=== PATIENT | male | born 1950 | race Caucasian/White ===

== ENCOUNTER 2018-09-13 19:58 | Inpatient (IN) | payer MEDICARE, MEDICAID ==
[~2018-09-13] VITALS: Ht 172.7 cm; Wt 63.5 kg
[2018-09-13 20:04] VITALS: BP 140/81
--- NOTE | 2018-09-13 20:12 | NUR ---
STATUS PATIENT REFUSING TO COOPERATE, HOSTILE, AND DISRUPTIVE IN WAITING AREA WHILE THIS NURSE ATTEMPTS TO BRING PT TO BACK FOR TRIAGE. HOSPITAL SECURITY DALLIN MCNALLY, MADE AWARE AND ATTEMPTS TO REASON WITH PATIENT UNSUCCESSFUL. AT THIS TIME, DALLIN NOTIFIED [place] [employer] DISPATCH AND REQUESTED OFFICER SUPPORT. AWAIT ARRIVAL. PT REMAINS IN ER WAITING AREA AT THIS TIME.
--- NOTE | 2018-09-13 20:18 | NUR ---
[place] [employer] LIZ HOLDEN AND OFFICER YOVANY ARRIVE TO [place] ER WAITING AREA. PT AGREES TO CARE AFTER REMEDIATION WITH OFFICER. PATIENT ESCORTED TO ER ROOM 8 ACCOMPANIED BY POLYSOMNOGRAPHY TECHNOLOGIST X2, HOSPITAL SECURITY, AND THIS NURSE. PT COOPERATIVE AND MORE PLEASANT.
--- NOTE | 2018-09-13 20:22 | NUR ---
HOME MEDICATIONS PT STATES HE DOES NOT TAKE ANY MEDICATIONS. CALL TO [facility]. PER ABDIEL, HE HAS RECEIVED A FAX FROM NURSING FACILITY THAT INCLUDED HOME MEDICATIONS.
--- NOTE | 2018-09-13 20:33 | ER.PDOC ---
General Chief Complaint: Requesting Medical Care Stated Complaint: MEDICAL CLEARANCE Time seen by MD: 20:30 Source: senior living records Exam Limitations: clinical condition History of Present Illness Initial Comments For medical clearance to go to [facility] for dementia with behavioral disturbance Timing/Duration: this afternoon Severity: moderate Associated Symptoms: Agitated Allergies: Coded Allergies: No Known Allergies (Unverified , 09/13/18) Home Meds Reported Medications Naproxen (NAPROSYN) 500 Mg Tablet, 1 TAB PO BID, #60 TAB 1 Refill 09/13/18 Omeprazole (OMEPRAZOLE) 20 Mg Capsule.dr, 1 CAP PO DAILY for GERD, #30 CAP 5 Refills 09/13/18 Tramadol Hcl (TRAMADOL HCL) 50 Mg Tablet, 50 MG PO Q4 PRN for PAIN, TABLET 09/13/18 Mirtazapine (REMERON) 15 Mg Tablet, 1 TAB PO HS, #30 TAB 1 Refill 09/13/18 Memantine Hcl (NAMENDA) 10 Mg Tablet, 1 TAB PO BID, #180 TAB 1 Refill 09/13/18 Buspirone Hcl (BUSPIRONE HCL) 5 Mg Tablet, 1 TAB PO TID for Anxiety, #60 TAB 1 Refill 09/13/18 Donepezil Hcl (ARICEPT) 10 Mg Tablet, 1 TAB PO HS, #30 TAB 5 Refills 09/13/18 Past Medical History Medical History: other (dementia) Review of Systems Constitutional: no symptoms reported EENTM: no symptoms reported Respiratory: no symptoms reported Cardiovascular: no symptoms reported Gastrointestinal: no symptoms reported Psychiatric/Neurological: see HPI All Other Systems: Reviewed and Negative Physical Exam General Appearance: No acute distress, Alert Neck: Non-Tender, Full Range of Motion, Supple, Normal Inspection Respiratory: chest non-tender, lungs clear, normal breath sounds, no respiratory distress, no accessory muscle use Cardiovascular: Normal Peripheral Pulses, Regular Rate, Rhythm, No Edema, No Gallop, No JVD, No Murmur Gastrointestinal: Normal Bowel Sounds, No Organomegaly, No Pulsatile Mass, Non Tender, Soft Extremities: Non-Tender, Normal Range of Motion, No Evidence of Trauma, No Edema Neurological/Psychiatric: Alert, Normal Mood/Affect, Calm, chemical pumper II-XII NML as Tested, Oriented x 3 Appearance/Memory/Insight: Appropriate Appearance, Appropriate Insight, Neat, No Memory Impairment Thoughts/Hallucinations: Normal Thought Pattern Skin: Normal Color Results/Orders Results/Orders Laboratory Tests Test 09/13/18 20:38 09/13/18 20:40 Urine Collection Type CCMS Urine Color YELLOW (YELLOW) Urine Appearance CLEAR (CLEAR) Urine Bilirubin NEGATIVE MG/DL (NEGATIVE) Urine Ketones NEGATIVE (NEGATIVE) Urine Specific [place] 1.015 (1.005-1.035) Urine pH 5 (5.0-6.0) Urine Protein NEGATIVE (NEGATIVE) Urine Urobilinogen NORMAL (NEGATIVE) Urine Nitrate NEGATIVE (NEGATAIVE) Urine Leukocyte Esterase NEGATIVE (NEGATIVE) Urine Blood NEGATIVE (NEGATIVE) Urine Glucose NORMAL (NEGATIVE) Urine Opiates, Qualitative NEGATIVE ng/mL (CUT-OFF:300) Urine Methadone, Qualitative NEGATIVE ng/mL (CUT-OFF:300) Urine Amphetamine Qualitative NEGATIVE ng/mL (CUTOFF:1000) Urine Barbiturates, Qualitative NEGATIVE ng/mL (CUT-OFF:200) Urine Phencyclidine Screen NEGATIVE ng/mL (CUT-OFF:25) Urine MDMA (Ecstasy), Qualitative NEGATIVE ng/mL (CUT-OFF:300) Urine Benzodiazepines Screen NEGATIVE ng/mL (CUT-OFF:200) Urine Cocaine Qualitative NEGATIVE ng/mL (CUT-OFF:300) Ur Tetrahydrocannabinol (THC) Scrn NEGATIVE ng/mL (CUT-OFF:50) White Blood Count 7.3 10^3/uL (4.5-11.0) Red Blood Count 4.99 10^6/uL (4.50-5.90) Hemoglobin 15.0 g/dL (13.9-16.3) Hematocrit 46.8 % (37.0-53.0) Mean Corpuscular Volume 93.8 fL (78-100) Mean Corpuscular Hemoglobin 30.1 pg (26-34) Mean Corpuscular Hemoglobin Concent 32.1 g/dL (33-37) Red Cell Distribution Width 13.3 % (11.5-14.5) Platelet Count 230 10^3/uL (150-400) Mean Platelet Volume 9.0 fL (7.8-11.0) Neutrophils (%) (Auto) 50.0 % (41.0-85.0) Lymphocytes (%) (Auto) 36.1 % (24.0-44.0) Monocytes (%) (Auto) 7.5 % (5.0-12.0) Neutrophils # (Auto) 3.6 10^3/uL (1.8-7.7) Lymphocytes # (Auto) 2.6 10^3/uL (1.0-4.8) Monocytes # (Auto) 0.6 10^3/uL (0.3-0.8) Absolute Immature Granulocyte (auto 0.08 10^3 u/L (0-2) Eosinophils % 4.5 % (0.0-5.0) Basophils % 0.8 % (0.0-0.2) Basophils # 0.1 10^3/uL (0.0-0.1) Eosinophil Count 0.3 10^3/uL (0.0-0.2) Prothrombin Time 10.4 SEC (9.8-11.9) Prothrombin Time INR (Non-Therap) 1.0 Activated Partial Thromboplast Time 26.6 SEC (24.67-30.72) Sodium Level 143 mmol/L (132-145) Potassium Level 4.0 mmol/L (3.6-5.2) Chloride Level 106.0 mmol/L (96-109) Carbon Dioxide Level 29.4 mmol/L (20.0-32) Anion Gap 11.6 Blood Urea Nitrogen 19 mg/dL (7-18) Creatinine 1.25 mg/dL (0.59-1.40) Estimated GFR () 69.1 (>/=60) BUN/Creatinine Ratio 15.0 Glucose Level 125 mg/dL (70-110) Calcium Level 9.4 mg/dL (8.4-10.5) Total Bilirubin 0.5 mg/dL (0.2-1.0) Aspartate Amino Transf (AST/SGOT) 14 U/L (0-35) Alanine Aminotransferase (ALT/SGPT) 23 U/L (12-78) Alkaline Phosphatase 75 U/L (50-136) Total Creatine Kinase 95 U/L (39-308) Troponin I < 0.02 ng/mL (0.00-0.05) Pro-B-Type Natriuretic Peptide 95 pg/mL (0-125) Total Protein 7.6 g/dL (6.4-8.2) Albumin 4.2 g/dL (3.4-5.0) Globulin 3.4 Vitamin B12 Level 304 pg/mL (193-986) Thyroid Stimulating Hormone (TSH) 4.149 mIU/mL (0.358-3.740) Percent Immature Gran (Cell Imm) 1.10 % (0.00-0.50) EKG/XRAY/CT/US EKG: NSR XRAY: chest (No acitive disease) Departure Time of Disposition: 22:11 Disposition: 09 ADMITTED INPATIENT Impression: Primary Impression: Delusional disorder Additional Impression: Dementia Qualified Codes: F02.81 - Dementia in other diseases classified elsewhere with behavioral disturbance Condition: Stable Referrals: PCP,UNKNOWN (PCP) PRIMARY CARE PROVIDER Comments Admitted to Dr. Roldan. Spoke to Dr. Laird who will consult. Duration or Time Spent with Pa: 60 mins ELOISE RENTERIA MD Sep 13, 2018 20:33
--- NOTE | 2018-09-13 20:35 | NUR ---
URINE URINE OBTAINED VIA VOID AND SENT TO LAB-PATIENT REMAINS COOPERATIVE. PT POSITIONED SELF IN BED AND WARM BLANKETS.
[2018-09-13 20:42] VITALS: BP 106/73
[2018-09-13 20:45] LABS: BASOPHIL # 0.1 10^3/uL (0.0-0.1); BASOPHIL % 0.8 % (0.0-0.2); EOSINOPHIL # 0.3 10^3/uL (0.0-0.2); EOSINOPHIL % 4.5 % (0.0-5.0); LYMPHOCYTES # 2.6 10^3/uL (1.0-4.8); LYMPHOCYTES % 36.1 % (24.0-44.0); MEAN CELL HGB 30.1 pg (26-34); MEAN CELL HGB CONCENTRATION 32.1 g/dL (33-37); MEAN CORP VOLUME 93.8 fL (78-100); MONOCYTES # 0.6 10^3/uL (0.3-0.8); MONOCYTES % 7.5 % (5.0-12.0); NEUTROPHIL # 3.6 10^3/uL (1.8-7.7); RED CELL DISTRIBUTION WIDTH 13.3 % (11.5-14.5); WHITE BLOOD CELL 7.3 10^3/uL (4.5-11.0)
[2018-09-13 20:48] LABS: BILIRUBIN,URINE NEGATIVE (NEGATIVE); UROBILINOGEN,URINE NORMAL (NEGATIVE)
[2018-09-13 20:49] LABS: APPEARANCE,URINE CLEAR (CLEAR); UA COLOR YELLOW (YELLOW)
--- NOTE | 2018-09-13 20:58 | PCM.EKG ---
[facility] Test Date: 2018-09-13 Test Time: 20:57:39 Pat Name: FREDDY RAMIREZ Department: Room: 214 Gender: M Credit Professional: LATISHA : 1950 Requested By: ELOISE RENTERIA Order Number: [id number] Reading MD: Eloise RENTERIA Measurements Intervals [place] Rate: 67 P: 85 LA: 160 QRS: 81 QRSD: 130 T: 78 QT: 416 QTc: 439 Interpretive Statements Normal sinus rhythm Right bundle branch block Abnormal ECG No previous ECG available for comparison Electronically Signed On 09-14-2018 6:49:50 YIELD ANALYST by Eloise RENTERIA Please click the below link to view image of tracing.
--- NOTE | 2018-09-13 20:58 | DIREP ---
PROCEDURE:CHEST 2 VIEWS COMPARISON:None. INDICATIONS:Medical clearnace FINDINGS: LUNGS/PLEURA:There is pulmonary hyperinflation consistent with underlying COPD. No focal consolidation. No effusions. VASCULATURE:Normal. Unremarkable pulmonary vasculature. CARDIAC:Normal. No cardiac silhouette abnormality or cardiomegaly. MEDIASTINUM:Atherosclerotic aorta with no visible aneurysm. BONES:Mild degenerative disc disease and spondylosis without visible acute abnormalities. OTHER:Healed right lateral rib fractures. CONCLUSION:COPD. No acute cardiopulmonary disease. Dictated by: Cole Smith M.D. on 09/13/2018 at 08:55 PM
--- NOTE | 2018-09-13 21:20 | NUR ---
STATUS RESTING IN BED, EYES CLOSED, NO SIGNS OF DISTRESS. RESPIRATIONS EVEN AND NONLABORED.
[2018-09-13 21:29] LABS: ALANINE AMINOTRANSFERASE(ML) 23 U/L (12-78); ALKALINE PHOSPHATASE 75 U/L (50-136); ASPARTATE AMINO TRANSFERASE 14 U/L (0-35); CALCIUM 9.4 mg/dL (8.4-10.5); CARBON DIOXIDE 29.4 mmol/L (20.0-32); GLUCOSE 125 mg/dL (70-110)
[2018-09-13 21:40] VITALS: BP 108/61
[2018-09-13] MEDS ORDERED: MIRT15TA PO (21:58)
[2018-09-13] MEDS ORDERED: DONE10TA57 PO (21:58)
[2018-09-13] MEDS ORDERED: BUSP5TAB2 PO (21:58)
[2018-09-13] MEDS ORDERED: MEMA10TA PO (21:58)
[2018-09-13] MEDS ORDERED: TRAM50TA PO (21:58)
[2018-09-13] MEDS ORDERED: NAPR-809 PO (21:58)
[2018-09-13] MEDS ORDERED: OMEP20CA12 PO (21:58)
--- NOTE | 2018-09-13 22:04 | NUR ---
STATUS PATIENT RESTING IN BED WITH EYES CLOSED, RESPIRATIONS EVEN AND NONLABORED. NO SIGNS OF DISTRESS. VITALS STABLE.
--- NOTE | 2018-09-13 22:10 | NUR ---
DR GUTIERREZ ON PHONE WITH EDP REGARDING ADMISSION TO [facility] UN[facility]; AWAIT FURTHER ORDERS
--- NOTE | 2018-09-13 22:14 | PRM.ACF1 ---
Date and Time Date and Time Time: 22:13 Admission Criteria Forms PSYCHIATRIC DISORDERS Clinical Indications for Inpatient Care ([place]/check the applicable condition/criteria) Ongoing inpatient care may be needed for 1 or more of the following(1)(2)(3)(4)( 6)(7)(8): [x ]I. Danger to self or others not manageable at lower level of care. [ ]II. Grave disability (eg, inability to perform self care necessary at lower level of care) [ ]III. Agitation or inappropriate behavior interfering with care for primary condition (eg, attempting to discontinue lines or drains prematurely, unable to cooperate with respiratory care) [ ]IV. Severe disability or disorder indicated by ALL of the following: [ ]a) Severe behavioral health disorder-related symptoms or condition indicated by 1 or more of the following: [ ]i) Severe problem with cognition, memory, judgment, or impulse control [ ]ii) Severe clinical manifestations (eg, hallucinations, delusions, other acute psychotic symptoms, genesis, extreme agitation or anxiety) [ ]b) Patient management at lower level of care is not available or is not feasible until acute intervention or modification is initiated. Extended stay beyond goal length of stay for the primary condition may be needed until ALLof the following are present(1)(2)(3)(4)(722)(23): [ ]a) Danger to self or others is absent or manageable at lower level of care [ ]b) Behavior crisis management, including physical or chemical restraints, is required and is not available at a lower level of care. [ ]c) Behavioral symptoms (e.g., agitation, somnolence, inappropriate behavior) are present, and are not manageable at a lower level of care. [ ]d) Patient cannot understand follow-up treatment and crisis plan. [ ]e) Provider and supports are sufficiently available at lower level of care. [ ]f) Patient can participate (e.g., verify absence of plan for harm) and is in needed of monitoring. The original [facility] content created by [facility] has been revised. The portions of the content which have been revised are identified through the use of italic text or in bold, and [facility] has neither reviewed nor approved the modified material. All other unmodified content is copyright [employer]. Please see references footnoted in the original [facility] edition 2017 ELOISE RENTERIA MD Sep 13, 2018 22:14
[2018-09-13 22:25] VITALS: BP 109/69
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
[2018-09-13 23:00] VITALS: BP 137/73
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
[2018-09-14] MEDS ORDERED: BUSP5TAB2 PO (00:16)
[2018-09-14] MEDS ORDERED: ATIVAN PO PRN (00:30)
[2018-09-14] MEDS ORDERED: HALDOL PO PRN (00:30)
[2018-09-14] MEDS ORDERED: ATIVAN IM PRN (00:30)
[2018-09-14] MEDS ORDERED: HALDOL IM PRN (00:30)
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
[2018-09-14 08:20] VITALS: BP 117/70
[2018-09-14] MEDS: BUSPAR PO SCH ×2 (09:07→14:52)
[2018-09-14] MEDS: NAMENDA PO SCH ×2 (09:07→20:41)
[2018-09-14] MEDS: PROTONIX PO SCH (09:07)
[2018-09-14] MEDS: NAPROXEN PO SCH ×2 (09:07→20:41)
--- NOTE | 2018-09-14 11:45 | NUR ---
SW ASSESSMENTS: PT REMAINS CONFUSED AND DISORIENTED AT THIS TIME. SW WILL REATTEMPT ASSESSMENTS WHEN PT IS MORE ALERT AND ORIENTED.
[2018-09-14] MEDS: ULTRAM PO PRN (15:02)
--- NOTE | 2018-09-14 17:50 | NUR ---
PIRP: P: DTO, DEMENTIA WITH BEHAVIOR DISTURBANCE I: Provide medications as ordered by physician. Encourage attendance and participation of all groups. Monitor patient behavior for changes that may indicate risk of injury to self or others. R: Patient has taken all medications and has participated in groups, playing [employer] this morning. He has been confused and disoriented asking to leave but is easily redirected. He has been calm and cooperative. He has not been combative or aggressive. P: Continue current plan of care.
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
[2018-09-14 19:53] VITALS: BP 99/58
[2018-09-14] MEDS: ARICEPT ODT PO SCH (20:41)
[2018-09-14] MEDS: REMERON SL SCH (20:42)
[2018-09-14] MEDS: ZOLOFT PO SCH (20:42)
--- NOTE | 2018-09-15 05:23 | NUR ---
-PIRP: P: DTO, Dementia with behavioral disturbance I: Provide medications as ordered by physician. Encourage attendance and participation of all groups. Monitor patient behavior for changes that may indicate risk of injury to self or others. R: The patient has remained seclusive to self in his room. He turned down multiple offers for snacks or to interact in dayroom. He is calm and pleasant on approach. He denies suicidal or homicidal ideation and hallucinations. He continues to be disoriented with poor insight into situation. He voices no complaints. P: Continue current plan of care. Will continue to monitor and maintain safety.
[2018-09-15 08:30] VITALS: BP 117/66
[2018-09-15] MEDS: ULTRAM PO PRN (09:46)
[2018-09-15] MEDS: PROTONIX PO SCH (09:47)
[2018-09-15] MEDS: NAPROXEN PO SCH ×2 (09:47→20:35)
[2018-09-15] MEDS: NAMENDA PO SCH ×2 (09:47→20:35)
--- NOTE | 2018-09-15 10:25 | NUR ---
TELEMED PT SPOKE WITH ARNIE MONROY. STATES MOOD IS FAIR. RATES DEPRESSION 0/10 AND ANXIETY 0/10. DENIES DTS OR DTO. NO NEW ORDERS RECEIVED AT THIS TIME.
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
[2018-09-15] MEDS ORDERED: ULTRAM PO PRN (12:00)
[2018-09-15] MEDS ORDERED: ULTRAM PO ONE (12:30)
--- NOTE | 2018-09-15 18:15 | NUR ---
PIRP: P: DTO, DEMENTIA WITH BEHAVIOR DISTURBANCE I: ENCOURAGE DAILY SOCIAL ACTIVITIES, OBSERVE AND REPORT UNUSUAL BEHAVIOR, WILL TAKE MEDICATIONS ORDERED R: PT DID PARTICIPATE IN MUSIC THERAPY, THEN REMAIN IN ROOM MOST OF DAY. PT STATED THAT HIS ARM WAS HURTING 10/10, AND WANTED TO LAY DOWN AND REST P: PAIN MEDICATIONS ADMINISTERED ORDERED
[2018-09-15 19:45] VITALS: BP 108/61
[2018-09-15] MEDS: REMERON SL SCH (20:36)
[2018-09-15] MEDS: ARICEPT ODT PO SCH (20:36)
[2018-09-15] MEDS: ZOLOFT PO SCH (20:36)
--- NOTE | 2018-09-16 03:55 | NUR ---
-PIRP: P: DTO, Dementia with behavioral disturbance I: Provide medications as ordered by physician. Encourage attendance and participation of all groups. Monitor patient behavior for changes that may indicate risk of injury to self or others. R: The patient continues to remain seclusive to self in his room. He states "I went to group. I get out of my bed to go get coffee and use the restroom". He reports that sleeping ten to twelve hours is common. He has remained in bed and sleeps in his boots. The patient interacts appropriately on approach, but does not elaborate much with responses to questions. He has poor insight into situation as he appears to believe that he is in a hospital because of problems with his arm. He denies suicidal or homicidal ideation and hallucinations. He voices no complaints. No behavioral issues. P: Continue current plan of care. Will continue to monitor and maintain safety.
[2018-09-16 07:40] VITALS: BP 120/66
--- NOTE | 2018-09-16 08:27 | PRM.PN ---
Mood: UP AND DOWN, IRRITABLE DURING THE INTERVIEW WITH DR. KNOX Sleep: SLEEPING WELL AT NIGHT Appetite: NORMAL APPETITE, ATE HIS BREAKFAST Suidical thoughts: NONE REPORTED Homicidal thoughts: NONE REPORTED Recent stressors: STRESS OF MENTAL ILLNESS Family support: LIMITED, HE IS A [employer] OF [facility] Aggressive Behavior: NONE REPORTED, CAN CURSE AT STAFF Ability to Perform ADL'sc: NEEDS PROMPTING, ABLE TO DO MOST ADLS Psychotic sympstoms: DELUSIONAL THINKING RELATED TO HIS DEMENTIA Manic Symptoms: NONE REPORTED Living situation: WAS LIVING AT [facility] Illicit Drug usec: NONE REPORTED Alcoholo use: NONE REPORTED Tobacco use: NONE REPORTED Anxity Symptoms: MODERATE ANXIETY LEVEL Anger/Irritablility: SOME ANGER AND IRRITABILITY Muscle Strength & Tone: WNL Gait & Station: WNL Appearance: Well groomed/hygience, Disheveled, Malodorous, Normal weight, Appears age stated Attitude & Behaviour: Uncooperative, Good eye contact Mood & Affect: Euthymic/appr/congruent, Iabile, Angry Orientation: Disoriented to place, Disoriented to time, Disoriented to situation Attention/Concentration: Poor attention, Poor concentration Speech: Reg rate/vol/rhyth/prosod Judgement/Insight: Poor judgement, Poor insight Thought Process: Linear/goal directed Language: Persian Thought content/Abnormal/Psych: Delusions Fund of Knowledge: Other Associations: SORAYA Memory (recent and remote): Recent memory repaired, Remote memory repaired Constitutional: None Neurological: None Psychiatric: Depressed, Anxious, Psychosis [place] I: DELUSIONAL DISORDER, MAJOR DEPRESSIVE DISORDER, DEMENTIA WITH BEHAVIOR [place] II: DEFERRED [place] III: REFER TO PMH/MEDICAL CHART [place] IV: STRESS OF MENTAL ILLNESS [place] V: GAF=25 Assessment/Plan Assessment/Plan Assessment/Plan Vital Signs Date Time Temp Pulse Resp B/P (MAP) Pulse Ox O2 Delivery O2 Flow Rate FiO2 09/16/18 07:40 97.9 61 16 120/66 (84) 94 Room Air 97.9 Allergies Coded Allergies No Known Allergies (Invobstsiv49/25/18) I & O 09/13/18 20:04 Thru 09/15/18 17:44 Intake Total 1740 ml Balance 1740 ml Current Medications Medications (Trade) Dose Ordered Sig/Lm Route Start Time Stop Time Status Last Admin Dose Admin Tramadol HCl (Ultram) 50 mg STAT ONCE PO 09/15/18 12:30 09/15/18 13:13 DC 09/15/18 12:40 50 MG THE PATIENT WAS SEEN BY DR. KNOX VIA TELEMEDICINE EQUIPMENT (SUPPORTED BY [facility]) ALONG WITH NURSING STAFF. THE PATIENT WAS SEEN BY STAFF HALLUCINATING THIS MORNING. THE PATIENT HAS BEEN FAIRLY COOPERATIVE WITH STAFF. HE DOES NOT WANT TO BATHE. THE PATIENT COMES TO GROUPS IF ASKED BY STAFF. THE PATIENT SLEPT 9.25 HOURS LAST NIGHT. THE PATIENT WAS ABLE TO STATE HIS NAME. THE PATIENT DID NOT KNOW THE DATE. THE PATIENT WAS DISORIENTED TO PLACE AND SITUATION. THE PATIENT DID NOT KNOW HE WAS LIVING AT THE [facility]. THE PATIENT DENIES SI OR HI. ASSESSMENT: DELUSIONAL DISORDER, MAJOR DEPRESSIVE DISORDER, GENERALIZED ANXIETY DISORDER, ALZHEIMER'S DEMENTIA WITH BEHAVIOR PROBLEMS PLAN: 1) CONTINUE BEHAVIORAL HEALTH MANAGEMENT. 2) CONTINUE CURRENT MEDICATIONS. STAFF AGREEABLE WITH THE PLAN. SUPPORTIVE THERAPY GIVEN. THE PATIENT WAS ENCOURAGED TO TAKE A SHOWER. THE PATIENT DENIES SI OR HI. 16 MINUTES SPENT IN SUPPORTIVE THERAPY AND INSIGHT ORIENTED THERAPY. Problems: (1) Dementia Status: Acute ICD Code: F03.90 - Unspecified dementia without behavioral disturbance SNOMED: [id number] (2) Delusional disorder Status: Acute ICD Code: F22 - Delusional disorders SNOMED: 64557034 (3) Major depressive disorder, recurrent, moderate ICD Code: F33.1 - Major depressive disorder, recurrent, moderate SNOMED: 17621005, [id number] Patient History: Unknown 21 Unknown Family History Problem Qualifiers (1) Dementia: Dementia type: associated with other underlying disease Dementia behavioral disturbance: with behavioral disturbance Qualified Codes: F02.81 - Dementia in other diseases classified elsewhere with behavioral disturbance FRANCIA KNOX IV, MD Sep 16, 2018 08:27
[2018-09-16] MEDS: NAPROXEN PO SCH ×2 (08:46→20:20)
[2018-09-16] MEDS: NAMENDA PO SCH ×2 (08:46→20:19)
[2018-09-16] MEDS: PROTONIX PO SCH (08:47)
--- NOTE | 2018-09-16 13:38 | NUR ---
SW ASSESSMENT FOLLOW UP: PT BECAME AGITATED DURING TREATMENT TEAM AND HAS REMAINED AGITATED. SS UNABLE TO COMPLETE SW ASSESSMENTS AT THIS TIME. WILL RETRY AT A LATER DAY WHEN PT IS NOT UPSET AND WILLING TO PARTICIPATE IN SW ASSESSMENTS.
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
--- NOTE | 2018-09-16 16:35 | NUR ---
F/U PRN: PT. IS IN THE DAY RROM AND PT. IS CALM AND COOPERATIVE. PT. HAS HAD NO ANGRY OUTBURST.
--- NOTE | 2018-09-16 17:20 | NUR ---
PIRP P: DEMENTIA WITH BEHAVIORAL DISTURBANCE I: MONITOR FOR CHANGES IN USUAL BEHAVIOR, Q15 MIN MONITORING, ORIENT TO SURROUNDINGS NEEDED, ASSESS FOR PSYCHOTIC SYMPTOMS, ASSIST WITH DIFFERENTIATING BETWEEN INTERNAL AND EXTERNAL REALITY, GIVE CLEAR AND SIMPLE INSTRUCTIONS, PROVIDE SAFE AND SUPPORTIVE ENVIRONMENT, PROVIDE TASK-ORIENTED ACTIVITIES, TEACH IMPORTANCE OF SELF-CARE AND HYGIENE, TEACH RELAXATION TECHNIQUES, REDIRECT WITH VERBALIZATION, GIVE MEDICATIONS ORDERED R: PT HAS IRRITABLE AFFECT. BECOMES AGITATED WITH STAFF WHEN ATTEMPTS MADE TO REDIRECT REGARDING VARYING DELUSIONS SUCH HAVING HIS "MEDICAL CARD AND BELTS" STOLEN. HAS NOT BEEN COMBATIVE OR EXIT-SEEKING, BUT HAS CURSED @ STAFF AND IS UNCOOPERATIVE @ TIMES. PARTICIPATES IN GROUP ACTIVITIES WITH PROMPTING, TAKES MEDICATIONS ORDERED. REQUIRED PRN ATIVAN @1526 D/T PT PACING IN ROOM, BECOMING INCREASINGLY AGITATED WITH STAFF, UNABLE TO REDIRECT REGARDING VALUABLES NOT BEING STOLEN. AFTER ADMIN OF PRN, PT APPEARED TO RELAX AEB NO LONGER AGITATED, PLEASANT WHEN APPROACHED, INITIATING INTERACTION WITH STAFF AND PEERS. NO LONGER DELUSIONAL. P: RE-ORIENT TO SURROUNDINGS AND SITUATION. REINFORCE UNIT RULES.
[2018-09-16 19:22] VITALS: BP 112/74
[2018-09-16] MEDS: ZOLOFT PO SCH (20:19)
[2018-09-16] MEDS: REMERON SL SCH (20:19)
[2018-09-16] MEDS: ARICEPT ODT PO SCH (20:20)
--- NOTE | 2018-09-17 05:33 | NUR ---
PIRP- P- DEMENTIA WITH DISTURBANCE OF BEHAVIOR I-PROVIDE MEDICATION ORDERED,PROVIDE SAFE AND SUPPORTIVE ENVIRONMENT ,Q 15 MIN. MONITORING R- PT. RATED ANXIETY 5 BUT WAS UNABLE TO RATE DEPRESSION .HE STATED HE WAS DEPRESSED AND HE WASN'T DEPRESSED. PT. WAS IN HIS ROOM LOOKING THROUGH HIS BELONGING FOLLOWING SHIFT CHANGE. HE ATTENDED GROUP,ATE SNACKS, QUIET AND DID NOT INITIATE INTERACTION. WHEN ASKED A QUESTION ,HIS ANSWERS DID NOT ALWAYS MATCH WITH THE QUESTIONS.EXHIBITED MEMORY LOSS. FORGETS WHERE HIS ROOM IS. TOOK MEDICATION ORDERED.DURING THE NIGHT, PT. WENT TO THE DOOR OF HIS ROOM AND STATED HE WAS LOOKING FOR A CUP SO HE COULD MAKE HIMSELF SOME COFFEE AND STARTED CUSING AT NURSE WHEN REDIRECTED. IN BED RESTING WITH EYES CLOSED AT THIS TIME.
[2018-09-17 08:06] VITALS: BP 103/56
[2018-09-17] MEDS: NAPROXEN PO SCH ×2 (09:30→20:39)
[2018-09-17] MEDS: NAMENDA PO SCH ×2 (09:31→20:39)
[2018-09-17] MEDS: PROTONIX PO SCH (09:31)
--- NOTE | 2018-09-17 09:32 | NUR ---
TELEMED PT WAS SEEN BY Stanislav WILSON, PORFIRIO, [employer]ING CONDUCTOR. NO NEW ORDERS RECEIVED @ THIS TIME.
--- NOTE | 2018-09-17 09:43 | PRM.PN ---
Mood: DENIES DEPRESSION. FLAT AFFECT BUT WARMS UP DURING INTERVIEW Sleep: SLEPT 6. HOURS LAST NIGHT Appetite: GOOD Suidical thoughts: DENIES Homicidal thoughts: DENIES Recent stressors: COGNITIVE DECLINE Family support: POOR Aggressive Behavior: NONE NOTED THIS AM Ability to Perform ADL'sc: IRRITABLE Psychotic sympstoms: DENIES Manic Symptoms: NONE NOTED Living situation: SKILLED NURSING Illicit Drug usec: NONE Alcoholo use: NONE Tobacco use: NONE Family,PT,Surgical,&Current HX: (1) Major depressive disorder, recurrent, moderate (2) Dementia Anxity Symptoms: DENIES Anger/Irritablility: DENIES Muscle Strength & Tone: WNL Gait & Station: WN Appearance: Casual attire, Normal weight, Appears age stated Attitude & Behaviour: Cooperative/Pleasant, Good eye contact Mood & Affect: Euthymic/appr/congruent Orientation: Disoriented to place, Disoriented to time, Disoriented to situation Attention/Concentration: Fair attention, Fair concentration Speech: Reg rate/vol/rhyth/prosod Judgement/Insight: Fair judgement, Fair insight Thought Process: Loose Language: Irish Thought content/Abnormal/Psych: None/normal Fund of Knowledge: Other (LIMITED) Associations: SORAYA Memory (recent and remote): Recent memory repaired, Remote memory repaired Constitutional: None Neurological: None Psychiatric: None [place] I: DELUSIONAL DISORDER, DEPRESSION, DEMENTIA [place] II: DEFERRED [place] III: SEE MEDICAL CHART/PMH [place] IV: COGNITIVE DECLINE/HEALTH [place] V: 35 Assessment/Plan Assessment/Plan Patient History: Unknown 21 Unknown Family History Plan Vital Signs Date Time Temp Pulse Resp B/P (MAP) Pulse Ox O2 Delivery O2 Flow Rate FiO2 09/17/18 08:06 97.9 61 18 103/56 (72) 94 97.9 09/16/18 19:22 Room Air Allergies Coded Allergies Type Severity Reaction Last Updated Verified No Known Allergies 09/13/18 No Intake and Output 09/17/18 07:00 Intake Total 1525 ml Balance 1525 ml Intake Oral 1525 ml # Voids 5 Problems Medical Problems: (1) Delusional disorder Status: Acute Rank: 2 ICD Codes: F22 - Delusional disorders SNOMED: 96945618 Responsible Provider: Harsh Beauchamp MBA, MD - ED Problem Recorded: Sep 13, 2018 22: 14 Last Edited By: Keyona Wilson DNP, [id number], ACCOUNTANT COST on Sep 15, 2018 10:31 (2) Dementia Status: Acute Rank: 1 ICD Codes: F03.90 - Unspecified dementia without behavioral disturbance SNOMED: 60853285 Responsible Provider: aHrsh Beauchamp MBA, MD - ED Problem Recorded: Sep 13, 2018 22: 14 Last Edited By: CADENCE-RANK UPDATE on Sep 15, 2018 10:31 THE PATIENT WAS SEEN BY KEYONA WILSON VIA TELEMEDICINE EQUIPMENT (SUPPORTED BY [facility]) ALONG WITH THE TREATMENT TEAM. YESTERDAY HE WAS GIVEN PRN ATIVAN DUE TO INCREASED ANGER AND AGITATION. HE HAS BEEN MORE PLEASANT THIS MORNING. HE IS EATING AND SLEEPING WELL. HE REPORTS HAVING GOOD ENERGY. HE DENIES ANY PROBLEMS WITH HIS MEDICATIONS. HE DENIES SI/HI/AV/VH. PREVIOUS AGITATION WAS RELATED TO DOING ADLS AND BEING REDIRECTED. HE DOES NOT SEEM TO RECALL THIS. HE REPORTS CONSTANT PAIN WITH HIS RIGHT ARM. ASSESSMENT: DELUSIONAL DISORDER, DEPRESSION, DEMENTIA PLAN: 1. CONTINUE BEHAVIORAL HEALTH MANAGEMENT. 2. CONTINUE CURRENT MEDICATIONS PRESCRIBED. STAFF AGREEABLE WITH PLAN 3. ALL PATIENT QUESTIONS ANSWERED RELATED TO MEDICATIONS, PLAN OF CARE, AND EXPECTED OUTCOMES. 16 MINUTES SPENT EDUCATING PATIENT ON PLAN OF CARE, INSIGHT THERAPY, AND PAIN MANAGEMENT. 4. SAFETY PLAN DISCUSSED. KEYONA WILSON NP Sep 17, 2018 09:43
--- NOTE | 2018-09-17 16:04 | NUR ---
MMSE: MODERATE IMPAIRMENT Addendum: 09/17/18 at 1605 by Mary Kay Mejia LMSW SW Amended: Links added.
--- NOTE | 2018-09-17 16:10 | NUR ---
GMAS: MODERATE DEPRESSION Addendum: 09/17/18 at 1611 by Mary Kay Mejia LMSW SW Amended: Links added.
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
--- NOTE | 2018-09-17 19:21 | NUR ---
PIRP P: DEMENTIA WITH BEHAVIORAL DISTURBANCE I: MONITOR FOR CHANGES IN USUAL BEHAVIOR, Q15 MIN MONITORING, ORIENT TO SURROUNDINGS NEEDED, ASSESS FOR PSYCHOTIC SYMPTOMS, ASSIST WITH DIFFERENTIATING BETWEEN INTERNAL AND EXTERNAL REALITY, GIVE CLEAR AND SIMPLE INSTRUCTIONS, PROVIDE SAFE AND SUPPORTIVE ENVIRONMENT, PROVIDE TASK-ORIENTED ACTIVITIES R: PT HAS BEEN PLEASANT AND COOPERATIVE THROUGHOUT SHIFT. HAS NOT EXHIBITED THREATENING OR COMBATIVE BEHAVIORS, NO HALLUCINATIONS NOTED. EXHIBITS VARYING DELUSIONS D/T CONFUSION. DENIES DEPRESSION, ANXIETY, SI/HI. IRRITABLE @ TIMES WITH REDIRECTION. PARTICIPATES IN GROUP ACTIVITIES WITH PROMPTING, HAS TAKEN MEDICATIONS ORDERED. DOES NOT INITIATE INTERACTION, BUT DOES RESPOND APPROPRIATELY WITH STAFF WHEN APPROACHED. P: PT UNABLE TO VERBALIZE PLAN, NO MED CHANGES.
[2018-09-17 19:36] VITALS: BP 123/72
[2018-09-17] MEDS: REMERON SL SCH (20:39)
[2018-09-17] MEDS: ARICEPT ODT PO SCH (20:39)
[2018-09-17] MEDS: ZOLOFT PO SCH (20:39)
--- NOTE | 2018-09-18 05:53 | NUR ---
PIRP- P- DEMENTIA WITH BEHAVIORAL DISTURBANCE I- PROVIDE MEDICATION ORDERED,PROVIDE SAFE AND SUPPORTIVE ENVIRONMENT AND Q 15 MIN. MONITORING R- PT. ORIENTED TO NAME NOT MONTH OR YEAR. DENIES DEPRESSION AND ANXIETY. ATTENDED GROUP,ATE SNACKS,QUIET BUT RESPONDS TO APPROACH. TOOK MEDICATION ORDERED. NO INAPPROPRIATE BEHAVIORS NOTED. RESTING IN BED WITH EYES CLOSED AT THIS TIME. P- WILL CONTINUE WITH CURRENT TX. PLAN.
[2018-09-18 08:02] VITALS: BP 143/59
[2018-09-18] MEDS: NORCO 5MG PO PRN (08:31)
[2018-09-18] MEDS: PROTONIX PO SCH (08:32)
[2018-09-18] MEDS: NAMENDA PO SCH ×2 (08:32→20:45)
[2018-09-18] MEDS: NAPROXEN PO SCH ×2 (08:32→20:45)
--- NOTE | 2018-09-18 10:50 | PRM.PN ---
Mood: DENIES DEPRESSION. Sleep: SLEPT 8.25 HOURS Appetite: GOOD Suidical thoughts: DENIES Homicidal thoughts: DENIES Recent stressors: COGNITIVE DECLINE Family support: POOR Aggressive Behavior: NONE NOTED Ability to Perform ADL'sc: FAIR Psychotic sympstoms: DENIES Manic Symptoms: NONE NOTED Living situation: [place] Illicit Drug usec: NONE Alcoholo use: NONE Tobacco use: NONE Family,PT,Surgical,&Current HX: (1) Delusional disorder (2) Dementia (3) Major depressive disorder, recurrent, moderate Anxity Symptoms: DENIES Anger/Irritablility: NONE NOTED RECENTLY Muscle Strength & Tone: WNL Gait & Station: WN Appearance: Casual attire, Normal weight, Appears age stated Attitude & Behaviour: Cooperative/Pleasant, Good eye contact Mood & Affect: Euthymic/appr/congruent Orientation: Disoriented to place, Disoriented to time Attention/Concentration: Good attention, Good concentration Speech: Reg rate/vol/rhyth/prosod Judgement/Insight: Fair judgement, Fair insight Thought Process: Linear/goal directed Language: Kittitian Thought content/Abnormal/Psych: None/normal Fund of Knowledge: Other (LIMITED) Associations: SORAYA Memory (recent and remote): Recent memory repaired, Remote memory repaired Constitutional: None Neurological: None Psychiatric: None [place] I: DEPRESSION,DELUSIONAL DISORDER, DEMENTIA [place] II: DEFERRED [place] III: SEE MEDICAL CHART/PMH [place] IV: INCREASED STRESS OF MENTAL ILLNESS [place] V: 40 Assessment/Plan Assessment/Plan Patient History: Unknown 21 Unknown Family History Plan Vital Signs Date Time Temp Pulse Resp B/P (MAP) Pulse Ox O2 Delivery O2 Flow Rate FiO2 09/18/18 08:02 97.5 74 16 143/59 (87) 94 Room Air 97.5 Allergies Coded Allergies Type Severity Reaction Last Updated Verified No Known Allergies 09/13/18 No Intake and Output 09/18/18 07:00 Intake Total 2770 ml Balance 2770 ml Intake Oral 2770 ml # Voids 6 # Bowel Movements 1 Problems Medical Problems: (1) Delusional disorder Status: Acute Rank: 2 ICD Codes: F22 - Delusional disorders SNOMED: 56215255 Responsible Provider: Harsh Beauchamp MBA, MD - ED Problem Recorded: Sep 13, 2018 22: 14 Last Edited By: Keyona Wilson DNP, Pmhnp-Bc, REPAIRER FINISHED METAL on Sep 15, 2018 10:31 (2) Dementia Status: Acute Rank: 1 ICD Codes: F03.90 - Unspecified dementia without behavioral disturbance SNOMED: 22606749 Responsible Provider: Harsh Beauchamp MBA, MD - ED Problem Recorded: Sep 13, 2018 22: 14 Last Edited By: CADENCE-RANK UPDATE on Sep 15, 2018 10:31 THE PATIENT WAS SEEN BY KEYONA WILSON VIA TELEMEDICINE EQUIPMENT (SUPPORTED BY [facility]) ALONG WITH THE TREATMENT TEAM. SHE REPORTS CONTINUED PAIN IN HIS RIGHT ARM. HE IS EATING AND SLEEPING WELL. HE DENIES SI/HI/AV/VH. HE IS TOLERATING HIS MEDICATIONS WELL. HE DOES NOT APPEAR TO BE SEDATED. HE HAS NOT REQUIRED ANY PRN MEDICATIONS. HE COOPERATIVE AND PLEASANT ON THE UNIT. HE DENIES ANXIETY AND DEPRESSION AT THIS TIME. ASSESSMENT: DEPRESSION, DELUSIONAL DISORDER, DEMENTIA PLAN: 1. CONTINUE BEHAVIORAL HEALTH MANAGEMENT. 2. CONTINUE CURRENT MEDICATIONS PRESCRIBED. STAFF AGREEABLE WITH PLAN 3. ALL PATIENT QUESTIONS ANSWERED RELATED TO MEDICATIONS, PLAN OF CARE, AND EXPECTED OUTCOMES. 4. SAFETY PLAN DISCUSSED. KEYONA WILSON ASSEMBLY OPERATOR Sep 18, 2018 10:50
--- NOTE | 2018-09-18 16:01 | NUR ---
Flu: [facility] contacted about status of Flu immunization. Patient did not receive a Flu shot this year and it [facility] and offered here at [facility]. He continues to refuse. Addendum: 09/18/18 at 1605 by DARSHAN Duval RN Amended: Links added.
--- NOTE | 2018-09-18 18:04 | NUR ---
PIRP: P: DTO, DEMENTIA WITH BEHAVIOR DISTURBANCE. I: Provide medications as ordered by physician. Encourage attendance and participation of all groups. Monitor patient for changes in that may indicate risk of injury to self and others. Allow patient to voice feeling and concerns. R: Patient has taken all medications as ordered. He has participated in Music and Occupational therapy but has refused craft group. He has not been aggressive or combative. P: Continue current plan of care.
[2018-09-18 19:15] VITALS: BP 122/70
[2018-09-18] MEDS: ZOLOFT PO SCH (20:45)
[2018-09-18] MEDS: REMERON SL SCH (20:45)
[2018-09-18] MEDS: ARICEPT ODT PO SCH (20:45)
--- NOTE | 2018-09-19 03:28 | NUR ---
PIRP- P- DTO AND BEHAVIORAL DISTURBANCE I- PROVIDE MEDICATION ORDERED,PROVIDE SAFE AND SUPPORTIVE ,Q 15 MIN. MONITORING. R- PT. ORIENTED TO NAME NOT MONTH OR YEAR. DENIES DEPRESSION AND ANXIETY. ATTENDED GROUP AND WATCHED BASKETBALL GAME. ATE SNACKS AND DID NOT INITIATE INTERACTION BUT RESPONDED WITH ONLY VERY SHORT ANSWERS. DID NOT EXHIBIT DTO OR INAPPROPRIATE BEHAVIORS. TOOK MEDICATION ORDERED. RESTING IN BED WITH EYES CLOSED AT THIS TIME. P- WILL CONTINUE WITH CURRENT TX. PLAN.
[2018-09-19 08:03] VITALS: BP 116/66
[2018-09-19] MEDS: NAMENDA PO SCH ×2 (09:09→20:30)
[2018-09-19] MEDS: PROTONIX PO SCH (09:09)
[2018-09-19] MEDS: NAPROXEN PO SCH ×2 (09:10→20:30)
--- NOTE | 2018-09-19 09:28 | PRM.PN ---
Mood: "IN THE MIDDLE", DENIES FEELING DEPRESSED Sleep: SLEEPING WELL AT NIGHT Appetite: NORMAL APPETITE Suidical thoughts: NONE REPORTED Homicidal thoughts: NONE REPORTED Recent stressors: STRESS OF MENTAL ILLNESS Family support: LIMITED Aggressive Behavior: NONE REPORTED, COOPERATIVE WITH STAFF Ability to Perform ADL'sc: YES Psychotic sympstoms: NONE REPORTED, HX OF DELUSIONAL THINKING RELATED TO DEMENTIA Manic Symptoms: NONE REPORTED Living situation: LIVES AT [facility] Illicit Drug usec: NONE REPORTED Alcoholo use: NONE REPORTED Tobacco use: NONE REPORTED Anxity Symptoms: MILD ANXIETY LEVEL Anger/Irritablility: LIMITED ANGER AND IRRITABILITY Muscle Strength & Tone: WNL Gait & Station: WN Appearance: Well groomed/hygience Attitude & Behaviour: Cooperative/Pleasant, Good eye contact Mood & Affect: Euthymic/appr/congruent Orientation: Disoriented to place, Disoriented to time, Disoriented to situation Attention/Concentration: Fair attention, Fair concentration Speech: Reg rate/vol/rhyth/prosod Judgement/Insight: Poor judgement, Poor insight Thought Process: Linear/goal directed Language: [place] Citizen Thought content/Abnormal/Psych: Delusions Fund of Knowledge: Other Associations: WNL/Normal Associations Memory (recent and remote): Recent memory repaired, Remote memory repaired Constitutional: None Neurological: None Psychiatric: None [place] I: MDD, IVIS, DELUSIONAL DISORDER, DEMENTIA [place] II: DEFERRED [place] III: REFER TO PMH/MEDICAL CHART [place] IV: STRESS OF MENTAL ILLNESS [place] V: GAF=30 Assessment/Plan Assessment/Plan Assessment/Plan Vital Signs Date Time Temp Pulse Resp B/P (MAP) Pulse Ox O2 Delivery O2 Flow Rate FiO2 09/19/18 08:03 98.3 73 16 116/66 (83) 95 Room Air 98.3 Allergies Coded Allergies No Known Allergies ([id number]/25/18) I & O 09/13/18 20:04 Thru 09/19/18 06:25 Intake Total 7157 ml Balance 7157 ml THE PATIENT WAS SEEN BY DR. KNOX VIA TELEMEDICINE EQUIPMENT ([facility] ALONG WITH THE NURSING STAFF. THE PATIENT SLEPT 8.25 HOURS LAST NIGHT. THE PATIENT HAS A NORMAL APPETITE. THE PATIENT HAS BEEN COOPERATIVE WITH STAFF. THE PATIENT HAS BEEN TAKING HIS MEDICATIONS. THE PATIENT HAS NOT REQUIRED PRN MEDICATIONS. THE PATIENT DENIES AUDITORY OR VISUAL HALLUCINATIONS. THE PATIENT DENIES FEELING PARANOID. THE PATIENT IS NOT HAVING MANIC OR HYPOMANIC SYMPTOMS. THE PATIENT DENIES FEELING DEPRESSED. THE PATIENT REPORTS HIS MOOD IS IN THE MIDDLE. THE PATIENT DENIES SI OR HI. ASSESSMENT: MAJOR DEPRESSIVE DISORDER, DELUSIONAL DISORDER, GENERALIZED ANXIETY DISORDER PLAN: 1) CONTINUE BEHAVIORAL HEALTH MANAGEMENT AT THE [facility] [place] [place]. 2) CONTINUE CURRENT MEDICATIONS. STAFF AGREEABLE WITH THE PLAN. SUPPORTIVE THERAPY GIVEN. THE PATIENT DENIES SI OR HI. SAFETY PLANS WERE DISCUSSED. PLAN TO DISCHARGE ON FRIDAY. Problems: (1) Dementia Status: Chronic ICD Code: F03.90 - Unspecified dementia without behavioral disturbance SNOMED: 76087317 (2) Delusional disorder Status: Acute ICD Code: F22 - Delusional disorders SNOMED: 89385345 (3) Major depressive disorder, recurrent, moderate ICD Code: F33.1 - Major depressive disorder, recurrent, moderate SNOMED: 39953367, 140145864 Patient History: Unknown 21 Unknown Family History Problem Qualifiers (1) Dementia: Dementia type: associated with other underlying disease Dementia behavioral disturbance: with behavioral disturbance Qualified Codes: F02.81 - Dementia in other diseases classified elsewhere with behavioral disturbance FRANCIA KNOX IV, MD Sep 19, 2018 09:28
--- NOTE | 2018-09-19 09:29 | NUR ---
TELEMED PT SPOKE WITH DR KNOX. STATES DEPRESSION 0/10 AND ANXIETY 0/10. NO NEW ORDERS RECEIVED. PLAN TO DISCHARGE FRIDAY 09/21
[2018-09-19] MEDS ORDERED: SERT50TA PO (09:34)
--- NOTE | 2018-09-19 17:06 | NUR ---
PIRP: P: DTO, DEMENTIA WITH BEHAVIOR DISTURBANCE I: ENCOURAGE DAILY SOCIAL ACTIVITIES, OBSERVE AND REPORT UNUSUAL BEHAVIOR, WILL TAKE MEDICATIONS ORDERED R: PT LAID IN BED MOST OF THE DAY, AND REFUSED TO PARTICIPATE IN GROUPS, OR TO STAY IN THE DAY ROOM. PT HAS NOT BEEN AGGRESSIVE OR COMBATIVE IN ANY WAY. PT STATED THIS A.M. THAT HE IS ANXIOUS TO GO HOME. PLAN TO DISCHARGE BACK TO [facility] Friday09/20/18 P: CONTINUE MEDICATION REGIMEN AND PLAN FOR DISCHARGE
[2018-09-19 20:00] VITALS: BP 100/60
[2018-09-19] MEDS: ARICEPT ODT PO SCH (20:31)
[2018-09-19] MEDS: ZOLOFT PO SCH (20:31)
[2018-09-19] MEDS: REMERON SL SCH (20:31)
--- NOTE | 2018-09-20 03:24 | NUR ---
pirp P- DTO AND BEHAVIORAL DISTURBANCE I- PROVIDE 1:1 INTERVENTION ALLOWING PT. TO EXPRESS THOUGHTS AND FEELINGS,Q 15 MIN. MONITORING AND PROVIDE SAFE AND SUPPORTIVE ENVIRONMENT AND PROVIDE MEDICATION ORDERED. R-PT. WAS ORIENTED TO NAME NOT MONTH OR YEAR. DENIES DEPRESSION AND ANXIETY. PLEASANT AFFECT. DECLINED TO ATTEND GROUP OR EAT A SNACK. HE STATED HE WAS TIRED AND HAS ENJOYED RESTING IN BED TODAY. TOOK MEDICATION ORDERED. HAS NOT EXHIBITED INAPPROPRIATE BEHAVIORS TONIGHT. RESTING IN BED WITH EYES CLOSED AT THIS TIME. P- WILL CONTINUE WITH CURRENT TX. PLAN.
[2018-09-20 08:16] VITALS: BP 115/61
[2018-09-20] MEDS: PROTONIX PO SCH (08:23)
[2018-09-20] MEDS: NAMENDA PO SCH ×2 (08:23→20:44)
[2018-09-20] MEDS: NAPROXEN PO SCH ×2 (08:24→20:43)
--- NOTE | 2018-09-20 10:26 | PRM.PN ---
Mood: "OK", DENIES FEELING DEPRESSED TODAY Sleep: SLEEPING WELL AT NIGHT, SLEPT 9.25 HOURS LAST NIGHT Appetite: LOW APPETITE, ENCOURAGED TO EAT WHICH HE WAS AGREEABLE WITH Suidical thoughts: NONE REPORTED Homicidal thoughts: NONE REPORTED Recent stressors: STRESS OF MENTAL ILLNESS Family support: LIMITED Aggressive Behavior: NONE REPORTED Ability to Perform ADL'sc: NEEDS SOME ASSISTANCE, ABLE TO PERFORM SOME ADLS Psychotic sympstoms: NONE REPORTED, DENIES AUDITORY OR VISUAL HALLUCINATIONS Manic Symptoms: NONE REPORTED Living situation: LIVES AT [facility] Illicit Drug usec: NONE REPORTED Alcoholo use: NONE REPORTED Tobacco use: NONE REPORTED Anxity Symptoms: MILD ANXIETY LEVEL Anger/Irritablility: LIMITED ANGER AND IRRITABILITY Muscle Strength & Tone: WNL Gait & Station: Ataxic Appearance: Well groomed/hygience, Casual attire, Normal weight, Appears age stated Attitude & Behaviour: Cooperative/Pleasant, Good eye contact Mood & Affect: Euthymic/appr/congruent Orientation: Disoriented to place, Disoriented to time, Disoriented to situation Attention/Concentration: Fair attention, Fair concentration Speech: Reg rate/vol/rhyth/prosod Judgement/Insight: Poor judgement, Poor insight Thought Process: Linear/goal directed Language: Icelandic Thought content/Abnormal/Psych: Delusions Fund of Knowledge: Other Associations: SORAYA Memory (recent and remote): Recent memory repaired, Remote memory repaired Constitutional: None Neurological: None Psychiatric: Depressed, Anxious [place] I: MDD, IVIS, DELUSIONAL DISORDER, DEMENTIA [place] II: DEFERRED [place] III: REFER TO PMH/MEDICAL CHART [place] IV: STRESS OF MENTAL ILLNESS [place] V: GAF=30 Assessment/Plan Assessment/Plan Assessment/Plan Vital Signs Date Time Temp Pulse Resp B/P (MAP) Pulse Ox O2 Delivery O2 Flow Rate FiO2 09/20/18 08:16 98.0 55 15 115/61 (79) 96 Room Air 98.0 Allergies Coded Allergies No Known Allergies (Qbiihvmkri84/25/18) I & O 09/13/18 20:04 Thru 09/20/18 08:29 Intake Total 7607 ml Balance 7607 ml THE PATIENT WAS SEEN BY DR. KNOX VIA TELEMEDICINE EQUIPMENT (SUPPORTED BY [facility]) ALONG WITH THE NURSING STAFF. THE PATIENT SLEPT 9.25 HOURS LAST NIGHT. THE PATIENT DID NOT EAT VERY MUCH YESTERDAY. THE PATIENT DID NOT EAT BREAKFAST THIS MORNING. THE PATIENT HAS BEEN STAYING IN HIS ROOM A LOT PER STAFF. THE PATIENT HAS BEEN COOPERATIVE WITH STAFF. THE PATIENT HAS BEEN TAKING HIS MEDICATIONS. THE PATIENT HAS NOT REQUIRED PRN MEDICATIONS. THE PATIENT DENIES AUDITORY OR VISUAL HALLUCINATIONS. THE PATIENT DENIES FEELING PARANOID. THE PATIENT IS NOT HAVING MANIC OR HYPOMANIC SYMPTOMS. THE PATIENT DENIES FEELING DEPRESSED. THE PATIENT REPORTS HIS MOOD IS IN THE MIDDLE. THE PATIENT DENIES SI OR HI. ASSESSMENT: MAJOR DEPRESSIVE DISORDER, DELUSIONAL DISORDER, GENERALIZED ANXIETY DISORDER, DEMENTIA WITH BEHAVIOR PROBLEMS PLAN: 1) CONTINUE BEHAVIORAL HEALTH MANAGEMENT AT THE [facility]. 2) CONTINUE CURRENT MEDICATIONS. STAFF AGREEABLE WITH THE PLAN. THE PATIENT WAS AGREEABLE WITH THE PLAN. SUPPORTIVE THERAPY GIVEN. THE PATIENT DENIES SI OR HI. SAFETY PLANS WERE DISCUSSED. PLAN TO DISCHARGE TOMORROW (09/21/18). Problems: (1) Dementia Status: Chronic ICD Code: F03.90 - Unspecified dementia without behavioral disturbance SNOMED: 47653343 (2) Delusional disorder Status: Acute ICD Code: F22 - Delusional disorders SNOMED: 82001208 (3) Major depressive disorder, recurrent, moderate Status: Acute ICD Code: F33.1 - Major depressive disorder, recurrent, moderate SNOMED: 51031190, 891946570 Patient History: Unknown 21 Unknown Family History Problem Qualifiers (1) Dementia: Dementia type: associated with other underlying disease Dementia behavioral disturbance: with behavioral disturbance Qualified Codes: F02.81 - Dementia in other diseases classified elsewhere with behavioral disturbance FRANCIA KNOX IV, MD Sep 20, 2018 10:26
--- NOTE | 2018-09-20 18:04 | NUR ---
PIRP: P: DTO, DEMENTIA WITH BEHAVIORAL DISTURBANCE I: MONITOR Q 15 MINUTES FOR SAFETY, PROVIDE SAFE AND SUPPORTIVE ENVIRONMENT, GIVE MEDS ORDERED R: PT. IS MONITORED Q 15 MINUTES FOR SAFETY, PT. HAS A SAFE AND SUPPORTIVE ENVIRONMENT HERE, PT. IS TAKING MEDS PRESCRIBED BY PHYSICIAN, PT. IS ALERT, CALM AND COOPERATIVE. PT. SLEPT 9.25 HOURS LAST NIGHT. PT. HAS 1:1 INTERVENTION WHEN NEEDED. P: PT. IS TO BE DISCHARGED TOMORROW TO GO BACK TO [facility]. CONTINUE CURRENT [place] PLAN.
[2018-09-20 19:50] VITALS: BP 128/75
[2018-09-20] MEDS: ZOLOFT PO SCH (20:43)
[2018-09-20] MEDS: ARICEPT ODT PO SCH (20:43)
[2018-09-20] MEDS: REMERON SL SCH (20:44)
--- NOTE | 2018-09-21 06:50 | NUR ---
-PIRP: P: DTO, Dementia with behavioral disturbance I: Provide medications as ordered by physician. Encourage attendance and participation of all groups. Monitor patient behavior for changes that may indicate risk of injury to self or others. R: The patient has been seclusive to self this shift and has remained in his room. He turned down multiple offers for snacks and to socialize in dayroom. He is pleasant on approach. The patient's planned discharge this AM back to [facility] was discussed. He reports that he was not aware and does not know what [facility] is, though his poor recent memory is secondary to baseline issues with confusion. The patient voices no complaints. He was compliant with evening medications. No behavioral issues. P: Continue current plan of care. Will continue to monitor and maintain safety.
[2018-09-21 08:01] VITALS: BP 108/61
[2018-09-21] MEDS: PROTONIX PO SCH (09:23)
[2018-09-21] MEDS: NAMENDA PO SCH ×2 (09:23→20:30)
[2018-09-21] MEDS: NAPROXEN PO SCH ×2 (09:24→20:31)
--- NOTE | 2018-09-21 10:40 | NUR ---
TELEMED PT SPOKE WITH ARNIE MONROY. WHEN ASKED PTS MOOD PT STATES "IT'S JUST ANOTHER DAY." DENIES DEPRESSION OR ANXIETY. UNABLE TO DISCHARGE TODAY. WAITING FOR PASAR APPROVAL. NO NEW ORDERS RECEIVED AT THIS TIME
--- NOTE | 2018-09-21 10:40 | PRM.PN ---
Mood: STABLE, "I'M HERE" Sleep: SLEPT Appetite: GOOD Suidical thoughts: DENIES Homicidal thoughts: DENIES Recent stressors: INCRASED MENTAL ILLNESS Family support: NONE Aggressive Behavior: NONE NOTED Ability to Perform ADL'sc: FAIR Psychotic sympstoms: DENIES Manic Symptoms: NONE Living situation: [place]-TERM Illicit Drug usec: NONE Alcoholo use: NONE Tobacco use: NONE Family,PT,Surgical,&Current HX: (1) Dementia (2) Delusional disorder (3) Major depressive disorder, recurrent, moderate Anxity Symptoms: STABLE, "I'M HERE" DENIES Anger/Irritablility: FLAT Muscle Strength & Tone: WNL Gait & Station: WNL Appearance: Well groomed/hygience, Casual attire, Normal weight, Appears age stated Attitude & Behaviour: Cooperative/Pleasant, Good eye contact Mood & Affect: Euthymic/appr/congruent Orientation: Disoriented to place, Disoriented to time, Disoriented to situation Attention/Concentration: Fair attention, Fair concentration Speech: Reg rate/vol/rhyth/prosod Judgement/Insight: Fair judgement, Poor insight Thought Process: Loose Language: Spanish Thought content/Abnormal/Psych: None/normal Fund of Knowledge: Other ( IMPAIRED) Associations: WNL/Normal Associations Memory (recent and remote): Recent memory repaired, Remote memory repaired Constitutional: None Neurological: None Psychiatric: None [place] I: DEPRESSION, DEMENTIA [place] II: DEFERRED [place] III: SEE MEDICAL CHART/PMH [place] IV: COGNITIVE DECLINE [place] V: 50 Assessment/Plan Assessment/Plan Patient History: Unknown 21 Unknown Family History Plan Vital Signs Date Time Temp Pulse Resp B/P (MAP) Pulse Ox O2 Delivery O2 Flow Rate FiO2 09/21/18 08:01 97.9 63 18 108/61 (77) 96 Room Air 97.9 Allergies Coded Allergies Type Severity Reaction Last Updated Verified No Known Allergies 09/13/18 No Intake and Output 09/21/18 07:00 Intake Total 910 ml Balance 910 ml Intake Oral 910 ml Problems Medical Problems: (1) Delusional disorder Status: Acute Rank: 2 ICD Codes: F22 - Delusional disorders SNOMED: 01085481 Responsible Provider: Harsh Beauchamp MBA, MD - ED Problem Recorded: Sep 13, 2018 22: 14 Last Edited By: Kameko Wilson, DNP, Pmhnp-Bc, STUNT WOMAN on Sep 15, 2018 10:31 (2) Dementia Status: Chronic Rank: 1 ICD Codes: F03.90 - Unspecified dementia without behavioral disturbance SNOMED: 27929710 Responsible Provider: Harsh Beauchamp MBA, MD - ED Problem Recorded: Sep 13, 2018 22: 14 Last Edited By: Terry Roldan MD - Gp on Sep 19, 2018 09:30 (3) Major depressive disorder, recurrent, moderate Status: Acute Rank: 3 ICD Codes: F33.1 - Major depressive disorder, recurrent, moderate SNOMED: 97662235, 729572646 Responsible Provider: KEYONA WILSON MANAGER GAME Problem Recorded: Sep 15, 2018 10:30 Last Edited By: Terry Roldan MD - Gp on Sep 20, 2018 10:29 THE PATIENT WAS SEEN BY KEYONA WILSON VIA TELEMEDICINE EQUIPMENT (SUPPORTED BY [facility]) ALONG WITH THE TREATMENT TEAM. HE IS DOING WELL. HE HAS SOME CONFUSION, HE DID NOT RECALL TAKING MEDICATIONS AND DID NOT KNOW HE WAS NOT AT A LONG-TERM. HE IS EATING AND SLEEPING WELL. DENIES AI/HI/AV/VH. HE HAS NOT REQUIRED ANY PRN PSYCHIATRIC MEDICATIONS. HE REPORTS FAIR ENERGY AND DOES NOT APPEAR TO BE SEDATED. ASSESSMENT:MAJOR DEPRESSIVE DISORDER, DEMENTIA, DELUSIONAL DISORDER PLAN: 1. CONTINUE BEHAVIORAL HEALTH MANAGEMENT. READY TO DISCHARGE ONCE HIS PASRR IS COMPLETED. 2. NICOTINE PATCH ORDERED FOR PATIENT IF NEEDED. CONTINUE ALL CURRENT MEDICATIONS PRESCRIBED. STAFF AGREEABLE WITH PLAN 3. ALL PATIENT QUESTIONS ANSWERED RELATED TO MEDICATIONS, PLAN OF CARE, AND EXPECTED OUTCOMES. 4. SAFETY PLAN DISCUSSED. KEYONA WILSON MANAGER GAME Sep 21, 2018 10:40
[2018-09-21] MEDS ORDERED: NICO-449 TD (11:00)
[2018-09-21] MEDS: NORCO 5MG PO PRN (15:31)
--- NOTE | 2018-09-21 17:09 | NUR ---
PIRP: P: DTO, DEMENTIA WITH BEHAVIOR DISTURBANCE I: ENCOURAGE DAILY SOCIAL ACTIVITIES, OBSERVE AND REPORT UNUSUAL BEHAVIOR, WILL TAKE MEDICATIONS ORDERED R: PT WAS NOT ABLE TO DISCHARGE TODAY D/T PASAR NOT COMPLETED. PT HAS HAD NO BEHAVIORS TODAY. PT HAS BEEN PLEASANT TODAY AND MOOD HAS BEEN FLAT. P: PLAN TO DISCHARGE ON Friday09/22/18
[2018-09-21 19:48] VITALS: BP 103/72
[2018-09-21] MEDS: ZOLOFT PO SCH (20:30)
[2018-09-21] MEDS: ARICEPT ODT PO SCH (20:31)
[2018-09-21] MEDS: REMERON SL SCH (20:32)
--- NOTE | 2018-09-22 05:20 | NUR ---
-PIRP: P: DTO, Dementia with behavioral disturbance I: Provide medications as ordered by physician. Encourage attendance and participation of all groups. Monitor patient behavior for changes that may indicate risk of injury to self or others. R: The patient refused evening snacks, but did socialize in dayroom prior to going to bed. The patient does not initiate conversation, but does respond appropriately when approached. He was compliant with evening medications. No behavioral issues. P: Continue current plan of care. Will continue to monitor and maintain safety.
[2018-09-22 07:44] VITALS: BP 93/64
[2018-09-22] MEDS: NAPROXEN PO SCH (08:23)
[2018-09-22] MEDS: NAMENDA PO SCH (08:24)
[2018-09-22] MEDS: PROTONIX PO SCH (08:24)
[2018-09-22] MEDS: NORCO 5MG PO PRN (08:24)
[2018-09-22] MEDS ORDERED: NICOTINE 14MG PATCH TD SCH (09:00)
--- NOTE | 2018-09-22 10:11 | NUR ---
FALL PT HAD TRIPPED OVER HIS OWN FEET, STUMBLED TO HIS KNEE, AND HIT HE ELBOW CAUSING A SKIN TEAR WHILE PLAYING BALLOON VOLLEYBALL. PICTURE TAKEN, WOUND CLEANSED WITH WOUND CLEANSER AND ADAPTIVE DRESSING PLACED. MINIMAL AMOUNT OF SANGUINEOUS DRAINAGE NOTED TO SITE. S/P VITALS ARE WNL, REFER TO INTERVENTIONS, AND NO S/S OF DISTRESS NOTED Addendum: 09/22/18 at 1830 by ROBINSON Lucas RN SKIN TEAR NOTED TO RIGHT ELBOW
[2018-09-22 10:19] VITALS: BP 126/72
[2018-09-22 11:09] VITALS: BP 126/72
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
--- NOTE | 2018-09-22 12:17 | NUR ---
Pt. discharged to [facility]. Signed: 09/22/18 at 1218 by NAYAN Latham OT
--- NOTE | 2018-09-22 12:19 | NUR ---
Pt. discharged to [facility]. Signed: 09/22/18 at 1219 by NAYAN Latham OT Addendum: 09/22/18 at 1219 by NAYAN Latham OT Amended: Links added.
--- NOTE | 2018-09-22 14:04 | NUR ---
Co-Signature For [place] Assessment I, NAYAN Latham am co-signing Music Therapy Activities Assessment with completion of this attached note. Signed: 09/22/18 at 1405 by NAYAN Latham OT
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
== END 2018-09-22 11:09 | DRG 885 ==
LOC: ER 19:58 → EEVIPCON 22:14 → GP 22:14 → EDPENDDISDT 09-21 14:00 → EDPENDDISTM 09-21 14:00 → EDPENDDISDT 09-22 11:09
PROVIDERS: ADMIT Psychiatry & Neurology Psychiatry; ATTEND Psychiatry & Neurology Psychiatry
DX: F33.2 Major depressive disorder, recurrent severe without psychotic features (principal); F02.81 Dementia in other diseases classified elsewhere, unspecified severity, with behavioral disturbance; F41.1 Generalized anxiety disorder; F17.210 Nicotine dependence, cigarettes, uncomplicated; G30.9 Alzheimer's disease, unspecified; G89.29 Other chronic pain; K21.9 Gastro-esophageal reflux disease without esophagitis; M50.90 Cervical disc disorder, unspecified, unspecified cervical region; F41.9 Anxiety disorder, unspecified
CPT/HCPCS: 36415; 71046; 80053; 80061; 80307; 81002; 82550; 82607; 83036; 83880; 84443; 84484; 85025; 85610; 85730; 93005; 97150; 97165; 99285; G0378; G8987; G8988